=== PATIENT | male | born 1955 | race Caucasian/White ===

== ENCOUNTER 2020-09-11 14:59 | Outpatient (CLI) | payer OTHER, SELFPAY ==
--- NOTE | ~2020-09-11 | CT_ITS ---
EXAMINATION: CT lung screening DATE: 09/11/2020 15:23 INDICATION: Personal history of tobacco dependence, prior smoker with 60 pack year history TECHNIQUE: Computed tomography (CT) of the chest was performed without intravenous contrast. The dose -length product (DLP) was 350.41 mGy-cm. Automated exposure control and iterative reconstruction tech [employer] were employed. COMPARISON: 12/02/2018 FINDINGS: There are multiple stable pulmonary nodules, the largest of which measures 6 mm in the righ t lower lobe. No new pulmonary nodules are identified. There is mild dependent atelectasis. Moderate emphysema is noted. No pathologically enlarged thoracic lymph nodes are identified. The heart size is normal. Calcified coronary artery atherosclerosis is noted. The liver is diffusely low in attenuatio n when compared with the spleen, consistent with hepatic steatosis. There are bridging osteophytes at multiple levels in the spine, consistent with diffuse idiopathic skeletal hyperostosis (DISH). IMPRESSION: 1. Lung-RADS category 2: Benign appearance or behavior. Continue annual screening with noncontrast lo w-dose chest CT in 12 months. Reviewed, dictated and finalized at location B. IMPRESSION: 1. Lung-RADS category 2: Benign appearance or behavior. Continue annual screeni ng with noncontrast low-dose chest CT in 12 months.
== END 2020-09-11 15:00 | disposition home or self-care (01) ==
PROVIDERS: PCP Family Medicine; Visit Provider Physician Assistant
DX: Z87.891 Personal history of nicotine dependence (principal)
CPT/HCPCS: 71271

== ENCOUNTER 2021-07-26 07:13 | Outpatient (CLI) | payer OTHER, SELFPAY ==
--- NOTE | ~2021-07-26 | US_ITS ---
EXAMINATION: US soft tissue abdomen DATE: 07/26/2021 07:54 INDICATION: Right abdominal wall bulge and cramping TECHNIQUE: Multiple grayscale and Doppler ultrasound images of the region of concern at the anterior right upper quadrant were obtained. COMPARISON: Chest CT dated 09/11/2020 FINDINGS: No abnormal masses or fluid collections identified at the region of concern. The costochondral cartil age of one of the ribs overlying the anterior margin of the liver demonstrates a focal angulation pro jecting outwards which could account for a focal bulge or masslike probable abnormality. There is inc reased echogenicity and coarsened echotexture of the underlying liver consistent with diffuse hepatic steatosis. There appears to be some hypoechoic sludge within the gallbladder. Peristalsing bowel is seen deep to the anterior abdominal wall at the midline with no evident ventral hernia. IMPRESSION: 1. The vertex of focal angulation of the costochondral cartilage of one of the anterior right ribs pr ojects peripherally and could account for a focal bulge masslike palpable abnormality. No lipoma or o ther abnormal masses, fluid collections or ventral hernias identified at the region of concern. Reviewed, dictated and finalized at location B. IMPRESSION: 1. The vertex of focal angulation of the costochondral cartilage of one of the anterior right ribs projects peripherally and could account for a focal bulge m asslike palpable abnormality. No lipoma or other abnormal masses, fluid collect ions or ventral hernias identified at the region of concern.
== END 2021-07-26 07:14 | disposition home or self-care (01) ==
PROVIDERS: PCP Family Medicine; Visit Provider Physician Assistant
DX: R19.00 Intra-abdominal and pelvic swelling, mass and lump, unspecified site (principal); Z87.891 Personal history of nicotine dependence; R10.9 Unspecified abdominal pain
CPT/HCPCS: 76705

== ENCOUNTER 2021-09-12 12:57 | Outpatient (CLI) | payer OTHER, SELFPAY ==
--- NOTE | ~2021-09-12 | CT_ITS ---
EXAMINATION:CT lung screening DATE: 09/12/2021 13:25 INDICATION: Tobacco use. Smoker who quit 12 years ago with 60 pack year history. TECHNIQUE: Computed tomography (CT) of the chest was performed without intravenous contrast. Automate d exposure control and iterative reconstruction technique were employed. The dose-length product (DLP ) was 412.49 mGy-cm. COMPARISON: Chest CT 09/11/2020 FINDINGS: There is severe emphysema. There is a stable 7 mm nodule in right lower lobe. There are sta ble 3 mm and 4 mm nodules in right middle lobe. A calcified right lung nodule and calcified right hil ar lymph nodes are consistent with old granulomatous disease. No pleural effusion. The heart size is normal. There are coronary artery calcifications. No pericardial effusion. There is chronic mild medi astinal lymphadenopathy, likely reactive. There is a small sliding hiatal hernia. There is diffuse he patic steatosis. There are bridging endplate osteophytes at multiple levels in the spine, consistent with diffuse idiopathic skeletal hyperostosis (DISH). IMPRESSION: 1. Lung-RADS category 2: Benign appearance or behavior. Continue annual screening with noncontrast lo w-dose chest CT in 12 months. Reviewed, dictated and finalized at location A. IMPRESSION: 1. Lung-RADS category 2: Benign appearance or behavior. Continue annual screeni ng with noncontrast low-dose chest CT in 12 months.
== END 2021-09-12 12:58 | disposition home or self-care (01) ==
PROVIDERS: PCP Family Medicine; Visit Provider Physician Assistant
DX: Z12.2 Encounter for screening for malignant neoplasm of respiratory organs (principal); Z87.891 Personal history of nicotine dependence
CPT/HCPCS: 71271

== ENCOUNTER 2022-09-16 09:22 | Outpatient (CLI) | payer OTHER, SELFPAY ==
--- NOTE | ~2022-09-16 | CT_ITS ---
EXAMINATION: CT lung screening DATE: 09/16/2022 09:45 INDICATION: 60 pack history of smoking. Lung cancer screening. TECHNIQUE: Computed tomography (CT) of the chest was performed without intravenous contrast. The dose -length product was 377.25 mGy-cm. Automated exposure control and iterative reconstruction technique were employed. COMPARISON: CT dated 09/12/2021 FINDINGS: There is mild mediastinal lymphadenopathy unchanged. Right paratracheal lymph node measures 11 mm short axis. No significant pleural or pericardial effusion. Fatty infiltration of the liver. T here is atherosclerosis of the coronary arteries. There are few scattered calcified granulomas. There is emphysema. There are a few small right middle lobe nodules measuring 4 mm or less. There is a sta ble 7 mm right lower lobe nodule, image 19. No endobronchial lesions. No new pulmonary nodules or mas ses. No pneumothorax. No endobronchial lesions. Moderate thoracic spondylosis. No focal lytic or marques tic lesions. IMPRESSION: 1. Lung-RADS category 2: Benign appearance or behavior. Continue annual screening with noncontrast lo w-dose chest CT in 12 months. Reviewed, dictated and finalized at location A. IMPRESSION: 1. Lung-RADS category 2: Benign appearance or behavior. Continue annual screeni ng with noncontrast low-dose chest CT in 12 months.
== END 2022-09-16 09:23 | disposition home or self-care (01) ==
PROVIDERS: PCP Family Medicine; Visit Provider Physician Assistant
DX: Z12.2 Encounter for screening for malignant neoplasm of respiratory organs (principal); Z87.891 Personal history of nicotine dependence
CPT/HCPCS: 71271

== ENCOUNTER 2023-09-18 07:25 | Outpatient (CLI) | payer OTHER, SELFPAY ==
--- NOTE | ~2023-09-18 | CT_ITS ---
EXAMINATION: CT lung screening DATE: 09/18/2023 07:40 INDICATION: Personal history of nicotine dependence TECHNIQUE: Computed tomography (CT) of the chest was performed without intravenous contrast. The dose -length product was 396.14 mGy-cm. Automated exposure control and iterative reconstruction technique were employed. COMPARISON: CT dated 09/16/2022 FINDINGS: Severe emphysema. Stable 7 mm right lower lobe nodule. Stable small bilateral pulmonary nod ules measuring 3 mm or less. No new pulmonary nodules. No pneumothorax. No endobronchial lesions. Sta ble borderline right paratracheal lymph node, likely reactive. IMPRESSION: 1. Lung-RADS category 2: Benign appearance or behavior. Continue annual screening with noncontrast lo w-dose chest CT in 12 months. Reviewed, dictated and finalized at location B. IMPRESSION: 1. Lung-RADS category 2: Benign appearance or behavior. Continue annual screeni ng with noncontrast low-dose chest CT in 12 months.
--- NOTE | ~2023-09-18 | US_ITS ---
EXAMINATION: US aorta [facility] DATE: 09/18/2023 16:14 CDT INDICATION: Screening for aortic aneurysm TECHNIQUE: Grayscale, color Doppler, and pulsed Doppler images of the aorta and common iliac arteries were obtained. COMPARISON: None. FINDINGS: The proximal aorta measures 2.7 cm greatest sagittal dimension. The mid aorta measures 2 cm greatest sagittal dimension. The distal aorta measures 1.8 cm greatest sagittal dimension. The right common in ternal iliac artery measures 1.4 cm. The left common iliac artery measures 1.3 cm. IMPRESSION: 1. Normal caliber aorta without aneurysm. Reviewed, dictated and finalized at location B.
== END 2023-09-18 07:26 | disposition home or self-care (01) ==
PROVIDERS: PCP Family Medicine; Visit Provider Physician Assistant
DX: Z12.2 Encounter for screening for malignant neoplasm of respiratory organs (principal); Z87.891 Personal history of nicotine dependence; Z13.6 Encounter for screening for cardiovascular disorders
CPT/HCPCS: 71271; 76706

== ENCOUNTER 2023-12-17 09:24 | Outpatient (CLI) | payer OTHER, SELFPAY ==
--- NOTE | 2023-12-17 11:02 | WPDPFTINT ---
PFT Procedure Performed PFT Procedure Performed Spirometry with Pre/Post Bronchodilator Plethysmography (Lung Vol) Diffusing Cap (DLCO) Flow Vol Loop PFT Interpretation This is a pulmonary function test with pre and post-bronchodilator spirometry, plethysmography and diffusing capacity. The test was performed and results interpreted in accordance with the 2019 and 2005 ATS/ERS Task Force guidelines respectively using the Global Lung Function Initiative-2012 reference equations. Patient demonstrated good effort and cooperation. Reproducibility criteria were met. The quality of the pre bronchodilator spirometry maneuver was Grade B and post bronchodilator spirometry maneuver was Grade B. Findings: Spirometry: The contour the inspiratory and expiratory flow tracing are normal. The pre bronchodilator FVC is 3.77 L, 93% predicted. The pre bronchodilator FEV1 is 2.61 L, 84% predicted. The pre bronchodilator FEV1: FVC ratio is 69%. The post bronchodilator FVC is 3.73 L, representing 1% decrease. The post bronchodilator FEV1 is 2.68 L, representing a 3% increase. The post bronchodilator FEV1: FVC ratio is 72%. Plethysmography: The total lung capacity is 6.79 L, 102% predicted. The functional residual capacity is 2.87 L, 82% predicted. The residual volume is 2.83 L, 123% predicted. Diffusing capacity: The diffusing capacity unadjusted for hemoglobin and carboxyhemoglobin is 18.0, 70% predicted. The diffusing capacity adjusted for alveolar volume is 3.46, 84% predicted. Impression: The spirometry is normal without evidence of an obstructive abnormality. There is no significant improvement after inhaling a single dose of albuterol. The lung volumes are normal. The diffusing capacity is normal. There are no prior studies for comparison
== END 2023-12-17 09:25 | disposition home or self-care (01) ==
PROVIDERS: PCP Family Medicine; Visit Provider Physician Assistant
DX: J43.9 Emphysema, unspecified (principal)
CPT/HCPCS: 94060; 94375; 94726; 94729

== ENCOUNTER 2024-03-03 03:15 | Day surgery (SDC) | payer OTHER, SELFPAY ==
[2024-02-09 15:53] VITALS: BMI 41.5
[2024-03-03 13:43] LABS: Glucose Point of Care 126 mg/dl (65-105)
[2024-03-03 13:45] VITALS: BP 145/79; PULSE 103; RESP 18; TEMP 36.4; O2SAT 96; BMI 40.1
--- NOTE | 2024-03-03 13:47 | P.PNAN_ITS ---
Anes - Initial Pre Proc Eval Procedure: Operation Date: 03/03/24 15:00 Proposed Procedures p Colonoscopy - Martín Santoro MD Date/Time: 03/03/24 13:47 Surgeon: Martín Santoro MD Pre Op Diagnosis: personal hx of colon polyps Patient Data Age: 68 Gender: M Height: 1.7 m Weight: 116.4 kg Last Vital Signs Temp 36.4 C L 03/03/24 13:45 Pulse 103 H 03/03/24 13:45 Resp 18 03/03/24 13:45 BP 145/79 H 03/03/24 13:45 Pulse Ox 96 03/03/24 13:45 O2 Del Method Room Air 03/03/24 13:45 Allergies Allergy/AdvReac Type Severity Reaction Status Date / Time No Known Allergies Allergy Verified 03/03/24 13:43 Home Medications ?Medication ?Instructions ?Recorded ?Confirmed ?Type aspirin 81 mg chewable tablet 81 mg PO DAILY 09/08/19 03/03/24 History cetirizine 10 mg capsule (Wal-Zyr 10 mg PO DAILY 09/08/19 03/03/24 History (cetirizine)) blood-glucose meter (Contour Next #1 ea 03/22/21 02/09/24 Rx Glucose Meter kit) lancets 30 gauge #200 ea 03/22/21 02/09/24 Rx blood sugar diagnostic (Contour #100 strips 02/13/23 02/09/24 Rx Next Test Strips) diclofenac sodium 75 mg 75 mg PO BID PRN gout flare #30 04/10/23 03/03/24 Rx tablet,delayed release tabs glipizide 2.5 mg tablet, extended 2.5 mg PO DAILY #90 tabs 07/16/23 03/03/24 Rx release 24 hr allopurinol 100 mg tablet 500 mg (5 x 100 mg) PO .COMPLEX 08/07/23 03/03/24 Rx #450 tabs metformin 500 mg tablet,extended 1,000 mg (2 x 500 mg) PO DAILY 10/13/23 03/03/24 Rx release 24 hr #180 tabs fenofibrate 160 mg tablet 160 mg PO DAILY #90 tabs 10/17/23 03/03/24 Rx lisinopril 20 1 tablet PO DAILY #90 tabs 12/15/23 03/03/24 Rx mg-hydrochlorothiazide 12.5 mg tablet Laboratory Tests 03/03/24 13:40 POC Capillary Glucose 126 H mg/dl (65-105) Patient hx anesthesia problems: none Family hx anesthesia problems: none Results Review: All pre-operative results and documents have been reviewed as part of the pre- operative evaluation. [facility], LAT[facility] Past Medical History Medical History (Updated 03/03/24 @ 13:48 by Deandre Nicholas MD) Type 2 diabetes mellitus with microalbuminuria, without long-term current use of insulin Essential hypertension Emphysema of lung Papilloma of tongue Pain of right great toe Surgical History Surgical History (Updated 03/03/24 @ 13:48 by Deandre Nicholas MD) H/O colonoscopy Family History Family History Mother Hypertension Cancer Sibling Hypertension Family history of chronic obstructive pulmonary disease Cancer Father Family history of coronary artery disease Son Asthma Diabetes mellitus Hypertension Social History Social History Smoking packs per day: 2.5 Smoking cigarettes per day: 50.0 Years smoked: 35 Smoking pack-years: 87.50 Smoking status: Former smoker Tobacco type: cigarettes Second hand tobacco smoke exposure: Yes Smoking end date: 02/24/09 Alcohol intake: current Drinks per week: 6 Alcohol use details: occasional Substance use: never Substance use type: does not use Lack of Transportation: No Lack of Food: Never True Current Housing: I Have Housing Concerned About Future Housing: No Difficulty Paying Gas/Electric Bills: No Difficulty Paying for Meds: No Currently Unemployed: No Education: High School Diploma/GED Difficulty w/ Childcare or Family Care: No Living arrangements: with family Occupation/Education: occupation Gender identity (if verbalized by the patient): Male Sexual Orientation (if Verbalized by the Patient): Straight or Heterosexual Spiritual care concerns: No Anes - Eval Final PreProcedure Day of Procedure 03/03/24 13:47 Patient weight: morbidly obese Heart: regular rate and rhythm Lungs: clear to auscultation Airway: Mallampati scale class II Neurological: alert and oriented Last oral intake: >/= 8 hours ASA classification: III Emergent: no Anesthetic plan: proceed Anesthesia type and monitoring: general GIVS and standard monitoring Results Review: All pre-operative results and documents have been reviewed as part of the pre- operative evaluation. Informed Consent: The patient's anesthetic plan and its attendant risks and benefits were discussed with the patient/family/POA. Questions were solicited and answers provided to the satisfaction of the patient/family/POA.
--- NOTE | 2024-03-03 13:47 | PM.HPGS ---
History of Present Illness History of Present Illness Consent: Risks, benefits, and alternatives have been discussed and questions answered. Patient agrees to proceed with procedure. Chief complaint: personal hx of colon polyps Narrative: Amanuel Powell Jr. is a 68 year old male with colon polyp in 2019 Review of Systems Review of Systems: All systems reviewed & are unremarkable except as noted in HPI and below PMFSH Past Medical History Medical History (Updated 03/03/24 @ 13:51 by Martín Santoro MD) Colon polyp Type 2 diabetes mellitus with microalbuminuria, without long-term current use of insulin Essential hypertension Emphysema of lung Papilloma of tongue Pain of right great toe Surgical History Surgical History (Updated 03/03/24 @ 13:48 by Deandre Nicholas MD) H/O colonoscopy Family History Family History Mother Hypertension Cancer Sibling Hypertension Family history of chronic obstructive pulmonary disease Cancer Father Family history of coronary artery disease Son Asthma Diabetes mellitus Hypertension Social History Social History Smoking packs per day: 2.5 Smoking cigarettes per day: 50.0 Years smoked: 35 Smoking pack-years: 87.50 Smoking status: Former smoker Tobacco type: cigarettes Second hand tobacco smoke exposure: Yes Smoking end date: 02/24/09 Alcohol intake: current Drinks per week: 6 Alcohol use details: occasional Substance use: never Substance use type: does not use Lack of Transportation: No Lack of Food: Never True Current Housing: I Have Housing Concerned About Future Housing: No Difficulty Paying Gas/Electric Bills: No Difficulty Paying for Meds: No Currently Unemployed: No Education: High School Diploma/GED Difficulty w/ Childcare or Family Care: No Living arrangements: with family Occupation/Education: occupation Gender identity (if verbalized by the patient): Male Sexual Orientation (if Verbalized by the Patient): Straight or Heterosexual Spiritual care concerns: No Meds Home Medications and Allergies Home Medications ?Medication ?Instructions ?Recorded ?Confirmed ?Type aspirin 81 mg chewable tablet 81 mg PO DAILY 09/08/19 03/03/24 History cetirizine 10 mg capsule (Wal-Zyr 10 mg PO DAILY 09/08/19 03/03/24 History (cetirizine)) blood-glucose meter (Contour Next #1 ea 03/22/21 02/09/24 Rx Glucose Meter kit) lancets 30 gauge #200 ea 03/22/21 02/09/24 Rx blood sugar diagnostic (Contour #100 strips 02/13/23 02/09/24 Rx Next Test Strips) diclofenac sodium 75 mg 75 mg PO BID PRN gout flare #30 04/10/23 03/03/24 Rx tablet,delayed release tabs glipizide 2.5 mg tablet, extended 2.5 mg PO DAILY #90 tabs 07/16/23 03/03/24 Rx release 24 hr allopurinol 100 mg tablet 500 mg (5 x 100 mg) PO .COMPLEX 08/07/23 03/03/24 Rx #450 tabs metformin 500 mg tablet,extended 1,000 mg (2 x 500 mg) PO DAILY 10/13/23 03/03/24 Rx release 24 hr #180 tabs fenofibrate 160 mg tablet 160 mg PO DAILY #90 tabs 10/17/23 03/03/24 Rx lisinopril 20 1 tablet PO DAILY #90 tabs 12/15/23 03/03/24 Rx mg-hydrochlorothiazide 12.5 mg tablet Allergies Allergy/AdvReac Type Severity Reaction Status Date / Time No Known Allergies Allergy Verified 03/03/24 13:43 Exam Const: General: comfortable and no acute distress HENMT: Face/Nose/Sinus: Normal nares present Eyes: General: appearance normal, both eyes and all related structures Neck: Neck: no JVD Resp: Auscultation: clear to auscultation bilaterally Cardio: Rate: regular rate Rhythm: regular rhythm GI: Inspection: non-distended GI Palp: Yes Soft to palpation Skin: General skin exam: normal color Neuro: General: gait normal Speech: normal speech Extrem: General: normal to inspection Psych: Mental Status: mental status grossly normal Assessment and Plan Assessment and plan (1) Colon polyp: Code(s): K63.5 - Polyp of colon Status: Acute Assessment and Plan: colonoscopy
[2024-03-03] MEDS: LACTATED RINGERS 1,000 ML 150 ML IV CONT (13:52)
[2024-03-03 14:15] VITALS: BP 91/60; PULSE 98; RESP 24; O2SAT 96
[2024-03-03 14:25] VITALS: BP 104/60; PULSE 93; RESP 20; O2SAT 96
[2024-03-03 14:35] VITALS: BP 133/66; PULSE 89; RESP 18; O2SAT 96
== END 2024-03-03 14:45 | disposition home or self-care (01) ==
PROVIDERS: PCP Family Medicine; Referring Provider Physician Assistant; Visit Provider Internal Medicine Gastroenterology
PROC: 0DJD8ZZ Inspection of Lower Intestinal Tract, Via Natural or Artificial Opening Endoscopic (ICD-10-PCS; CPT 45378; principal; 2024-03-03 15:00)
DX: Z12.11 Encounter for screening for malignant neoplasm of colon (principal); D12.2 Benign neoplasm of ascending colon; D12.3 Benign neoplasm of transverse colon; D12.5 Benign neoplasm of sigmoid colon; K63.5 Polyp of colon; K64.8 Other hemorrhoids; K57.30 Diverticulosis of large intestine without perforation or abscess without bleeding; K62.89 Other specified diseases of anus and rectum; I10 Essential (primary) hypertension; J43.9 Emphysema, unspecified; E11.29 Type 2 diabetes mellitus with other diabetic kidney complication; E66.01 Morbid (severe) obesity due to excess calories; Z68.41 Body mass index [BMI] 40.0-44.9, adult; Z79.82 Long term (current) use of aspirin; Z79.84 Long term (current) use of oral hypoglycemic drugs; Z87.891 Personal history of nicotine dependence; Z86.018 Personal history of other benign neoplasm; Z80.9 Family history of malignant neoplasm, unspecified; Z82.49 Family history of ischemic heart disease and other diseases of the circulatory system
CPT/HCPCS: 45380; 82948; 88305; J2003; J2704; J7120

== ENCOUNTER 2024-08-17 13:05 | Outpatient (CLI) | payer OTHER, SELFPAY ==
--- NOTE | ~2024-08-17 | US_ITS ---
US soft tissue abdomen Ordering provider: Alverto Rodriguez PA-C History: . Right abdominal wall bulge . Technique: Ultrasound images obtained for the area of concern in the anterior abdominal wall. Comparison: None. FINDINGS/impression: No definite abnormality seen in the area of concern. Reviewed, dictated and finalized at location A.
== END 2024-08-17 13:06 | disposition home or self-care (01) ==
PROVIDERS: PCP Family Medicine; Visit Provider Physician Assistant
DX: R19.00 Intra-abdominal and pelvic swelling, mass and lump, unspecified site (principal)
CPT/HCPCS: 76705

== ENCOUNTER 2024-09-20 09:30 | Outpatient (CLI) | payer OTHER, SELFPAY ==
--- NOTE | ~2024-09-20 | CT_ITS ---
CT Scan of the Chest without Contrast: Clinical Indication: Lung cancer screening, nicotine dependence Technique: Contiguous sections were acquired throughout the chest without intravenous contrast. Dose reduction technique was used on this scan by utilizing automated exposure control and iterative recon struction technique. The dose-length product (DLP) was 413.29 mGy-cm. COMPARISON: 09/18/2023 Findings: There is no evidence of any significant mediastinal, hilar or axillary lymphadenopathy. The mediastin al soft tissues appear normal. There is no evidence of pleural or pericardial effusion. There is advanced upper lobe emphysema. Stable 7 mm right lower lobe nodule (axial image 95). Images through the upper abdomen reveal diffuse fatty infiltration of the liver. There is DISH of the thoracic spine. Impression: Lung RADS 2: Benign appearance. 12 month follow-up screening CT advised. Reviewed, dictated and finalized at location . Impression: Lung RADS 2: Benign appearance. 12 month follow-up screening CT advised.
== END 2024-09-20 09:31 | disposition home or self-care (01) ==
PROVIDERS: PCP Family Medicine; Visit Provider Physician Assistant
DX: Z12.2 Encounter for screening for malignant neoplasm of respiratory organs (principal); Z87.891 Personal history of nicotine dependence
CPT/HCPCS: 71271